=== PATIENT | male | born 1990 | race Caucasian/White ===

== ENCOUNTER → 2016-06-12 | Outpatient (CLI) | payer OTHER ==
--- NOTE | 2016-06-13 01:56 | REP ---
Clinical: Trauma. Injury. Technique: AP, lateral, bilateral oblique views of the right fourth digit. Findings: Soft tissue swelling overlying the distal phalanx suggests underlying infectious/inflammatory process. No subcutaneous emphysema. The osseous structures and joint spaces are intact and normal by radiographic evaluation. Impression: Swelling compatible with underlying infectious/inflammatory process. No osseous or articular abnormality by radiograph. Signed by Jose Luis Cochran MD 06/13/2016 01:48 A
== END ==
LOC: M WUC 17:36
PROVIDERS: ATTEND Physician Assistant
DX: S60.141A Contusion of right ring finger with damage to nail, initial encounter (principal); X58.XXXA Exposure to other specified factors, initial encounter; Y92.89 Other specified places as the place of occurrence of the external cause

== ENCOUNTER → 2018-04-12 | Outpatient (CLI) | payer OTHER ==
[2018-04-12 10:01] LABS: HEMATOCRIT 46.7 % (42.0-52.0); MEAN CORPUSCULAR HEMOGLOBIN 30.8 pg (27.0-33.0); MEAN CORPUSCULAR HGB CONC 34.3 g/dl (32.0-36.5); PLATELET COUNT, AUTOMATED 220 10^3/uL (150-450); RED BLOOD COUNT 5.19 10^6/uL (4.30-6.10); RED CELL DISTRIBUTION WIDTH 12.7 % (11.5-14.5); WHITE BLOOD COUNT 7.5 10^3/uL (4.0-10.0)
[2018-04-12 10:27] LABS: ESTIMATED AVERAGE GLUCOSE 103 MG/DL (60-110); HEMOGLOBIN A1c 5.2 %
[2018-04-12 10:42] LABS: ALBUMIN 3.5 GM/DL (3.2-5.2); ALBUMIN/GLOBULIN RATIO 0.97 (1.00-1.93); ALKALINE PHOSPHATASE 82 U/L (45-117); ALT/SGPT 26 U/L (12-78); ANION GAP 6 MEQ/L (8-16); AST/SGOT 18 U/L (7-37); BILIRUBIN,TOTAL 0.6 MG/DL (0.2-1.0); BLOOD UREA NITROGEN 13 MG/DL (7-18); CALCIUM LEVEL 8.6 MG/DL (8.5-10.1); CARBON DIOXIDE LEVEL 29 MEQ/L (21-32); CHLORIDE LEVEL 109 MEQ/L (98-107); CHOLESTEROL LEVEL 134 MG/DL (<200); CHOLESTEROL RISK RATIO 3.526 (<5); CREATININE FOR GFR 0.89 MG/DL (0.70-1.30); GLOMERULAR FILTRATION RATE > 60.0 (>60); GLUCOSE, FASTING 94 MG/DL (70-100); HDL CHOLESTEROL 38 MG/DL (>40); LDL CHOLESTEROL 65 MG/DL (<100); NON-HDL-C 96 MG/DL; POTASSIUM SERUM 5.2 MEQ/L (3.5-5.1); PROSTATIC SPECIFIC AG MONITOR 0.5 NG/ML (< 4.0); SODIUM LEVEL 144 MEQ/L (136-145); THYROID STIMULATING HORMONE 0.941 uIU/ML (0.358-3.740); TOTAL PROTEIN 7.1 GM/DL (6.4-8.2); TRIGLYCERIDES LEVEL 153 MG/DL (<150)
[2018-04-14 12:06] LABS: TOTAL 25(OH) VITAMIN D 12.4 NG/ML (30.0-100.0)
== END ==
LOC: M LAB 09:36
DX: R53.83 Other fatigue (principal); I10 Essential (primary) hypertension; M54.30 Sciatica, unspecified side; M51.9 Unspecified thoracic, thoracolumbar and lumbosacral intervertebral disc disorder; R93.89 Abnormal findings on diagnostic imaging of other specified body structures
CPT/HCPCS: 71046

== ENCOUNTER → 2019-06-24 | Outpatient (CLI) | payer BC ==
--- NOTE | 2019-06-24 16:23 | REP ---
Clinical: Pain. Technique: AP, lateral, bilateral oblique and coned-down views of the lumbosacral spine. Comparison: 04/12/2018. Findings: Alignment and lordosis maintained. Vertebral bodies are intact. There is apparent sacralization of the L5 vertebral body. No acute fracture / compression injury or subluxation. No significant degenerative changes are identified. Impression: Sacralization of L5. No significant degenerative changes noted. Electronically Signed by Jose Luis Cochran MD 06/24/2019 04:14 P
== END ==
LOC: M WUC 15:54
PROVIDERS: ATTEND Family Medicine
DX: M54.5 Low back pain (principal)